=== PATIENT | male | born 1950 | race Caucasian/White ===

== ENCOUNTER 2022-05-03 10:12 | Emergency (ER) | payer MEDICARE, OTHER ==
[~2022-05-03] VITALS: Ht 175.2 cm; Wt 172.3 kg
--- NOTE | 2022-05-03 11:25 | ED Fall/Injury ---
General Chief Complaint: Trauma-Non Activation Stated Complaint: LEG PAIN Nursing Triage Note: FELL GETTING UP INTO HIS TRUCK THIS MORNING LAID OUTSIDE FOR ABOUT AN HOUR BEFORE EMS ARRIVED. PATIENT STATES HIS LEFT LEG "FEELS LIKE JELLY AND HE CANT PUT ANY WEIGHT ON IT." ARRIVED VIA EMS TO ROOM 7. History of Present Illness Date Seen by Provider: May 04, 2022 Time Seen by Provider: 09:30 Initial Comments 71-year-old male presents for left flank pain. He has difficulty, pain in b ilateral knees with ambulation due to osteoarthritis that is severe. He states he was stepping into his car with his right leg and his left leg gave out. He has severe pain just below the knee on the left side. He has not been able to bear any weight since the incident. Describes pain as severe, dull throbbing worse with movement. No radiation. No other injuries. Did not hit his head or lose consciousness. He is not on any blood thinning medications. No neck back chest or abdominal pain. No pain in his upper extremities. Location Injury Occurred: AT HIS HOME Allergies and Home Medications Allergies Coded Allergies: No Known Drug Allergies (Unverified , 05/03/22) Patient Home Medication List Home Medication List Reviewed: Yes Review of Systems Review of Systems Constitutional: no symptoms reported Eyes: No Symptoms Reported Ears, Nose, Mouth, Throat: no symptoms reported Respiratory: no symptoms reported Cardiovascular: no symptoms reported Gastrointestinal: no symptoms reported Genitourinary: no symptoms reported Musculoskeletal: other (Left leg pain) Skin: no symptoms reported Psychiatric/Neurological: No Symptoms Reported Past Rsmostu-Ndrhej-Ayzsgs Hx Patient Social History Tobacco Use?: No Use of E-Cig and/or Vaping dev: No Substance use?: No Alcohol Use?: No Pt feels they are or have been: No Immunizations Up To Date Influenza Vaccine Up-to-Date: No; Not Current First/Initial COVID19 Vaccinat: 2020 Second COVID19 Vaccination [place]: 2020 Family Medical History Reviewed Nursing Family Hx No Pertinent Family Hx Physical Exam Vital Signs Vital Signs - First Documented Capillary Refill : Less Than 3 Seconds Height, Weight, BMI Height: '" Weight: lbs. oz. kg; 56.00 BMI Method: General Appearance: WD/WN, no apparent distress HEENT: normal ENT inspection, pharynx normal Neck: non-tender, supple, normal inspection Cardiovascular: regular rate, rhythm, no gallop, no JVD, no murmur Respiratory: chest non-tender, lungs clear, normal breath sounds, no respiratory distress, no accessory muscle use Gastrointestinal: normal bowel sounds, non tender, soft, no organomegaly Back: normal inspection, no vertebral tenderness Extremities: normal capillary refill, other (Tenderness palpation and swelling with palpable deformity just distal to the left knee, proximal tib-fib area. Neurovascular motor and sensory intact. He does have 2+ pitting edema bilateral lower extremities. Clear signs of peripheral vascular disease bilateral lower extremities with weakened pulses but normal capillary refill. We do find Doppler pulses.) Neurologic/Psychiatric: alert, normal mood/affect, oriented x 3 Skin: normal color, warm/dry Lymphatic: no adenopathy Progress/Results/Core Measures Results/Orders My Orders Orders - RACHEL IRAHETA DO Femur, Left, 2 Views (05/03/22 10:21) Tibia/Fibula, Left, 2 Views (05/03/22 10:21) Morphine Injection (Morphine Injection (05/03/22 11:52) Vital Signs/I&O 05/03/22 05/03/22 05/03/22 10:15 10:15 12:34 Temp 36.6 36.6 Pulse 70 70 65 Resp 16 16 16 B/P (MAP) 139/99 (112) 139/99 (112) 118/74 Pulse Ox 94 94 94 O2 Delivery Room Air Room Air Room Air Blood Pressure Mean: 112 Diagnostic Imaging Comments Left femur, tib-fib: Proximal tibia, fibular fractures Departure Communication (Admissions) Time/Spoke to Admitting Phy: 11:25 1120: Spoke to Dr Vee who believes fx is too complicated for management here. 1125: Spoke to nora Granado and Dr Mejia, KAYLA. Both accept transfer as a trauma. He is splinted and neurovascular intact. Patient has proximal tib-fib fracture. The tibial portion is significantly displaced however the fracture does not go into the joint and joint spaces maintained overall. He is neurovascular motor and sensory intact I do believe he has some chronic vascular issues in his bilateral lower extremities that are currently undiagnosed. I spoke with Dr. Vee initially here who thinks that fracture is too complicated for management here. I spoke with Dr. Boggs at [facility] recommends transfer to the emergency department as a trauma. I spoke with Dr. Mejia in the ER who accepts the patient in transfer to [facility]. Patient is notified and comfortable agreeable transfer. He is splinted and remained neurovascularly intact. Impression Primary Impression: Fracture of proximal end of left tibia Qualified Codes: S82.102A - Unspecified fracture of upper end of left tibia, initial encounter for closed fracture Additional Impression: Fracture of left proximal fibula Qualified Codes: S82.832A - Other fracture of upper and lower end of left fibula, initial encounter for closed fracture Disposition: XF [facility] HOSP Condition: Stable Admissions Decision to Admit Reason: Admit from ER (Trauma) Decision to Admit/Date: May 03, 2022 Time/Decision to Admit Time: 11:25 Transfer Transfer Reason: Exceeds level of care Departure-Patient Inst. Referrals: NO,LOCAL PHYSICIAN (PCP/Family) Primary Care Physician RACHEL IRAHETA DO May 03, 2022 11:25
--- NOTE | 2022-05-03 11:35 | Diagnostic Imaging Report ---
CLINICAL INDICATION: Patient fell getting up into his truck this morning and laid outside for about an hour before EMS arrived. EXAMS: 1: X-ray of the left femur, 2 views. 2: X-ray of the left tibia and fibula, 2 views. COMPARISON: None. FINDINGS: There is a comminuted and displaced fracture involving the proximal tibial diametaphyseal region. There is roughly 1.4 cm of medial displacement of the distal fracture fragment roughly 4 mm of anterior displacement of the distal fracture fragment. There is a displaced comminuted fracture the proximal fibular diametaphysis. There is one fourth shaft width of ventral displacement of the distal fracture fragment and slight medial displacement of a fracture fragment. There is no other fracture seen involving the left femur or left tibia-fibula. The left hip is intact. There are severely hypertrophic calcaneal spurs on the plantar attachment. There are hypertrophic spurs involving the inferior aspect of the medial malleolus. There is severe tricompartmental spurs involving the left knee. There is moderate to severe medial compartment narrowing of the left knee. Vascular calcifications and phleboliths are seen involving the lower lumbar spine. IMPRESSION: 1: X-ray of the left femur and left tibia fibula shows comminuted and displaced fractures involving the proximal left tibial diametaphysis and proximal left fibular diametaphysis, as described above. 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 Dictated by: Dictated on workstation # [id number]
[2022-05-03] MEDS ORDERED: morphine INJ 10 MG/ML 1ML (SYR OR VIAL) IVP STA (11:52)
[2022-05-03 12:34] VITALS: BP 118/74
== END 2022-05-03 12:40 | disposition short-term general hospital (02) ==
LOC: ER 10:14
DX: S82.102A Unspecified fracture of upper end of left tibia, initial encounter for closed fracture (principal); S82.832A Other fracture of upper and lower end of left fibula, initial encounter for closed fracture; Z28.310 Unvaccinated for COVID-19; W19.XXXA Unspecified fall, initial encounter
CPT/HCPCS: 29505; 73552; 73590